=== PATIENT | female | born 1960 | race Asian ===

== ENCOUNTER → 2020-01-01 14:49 | Outpatient (BNVA) | payer OTHER, SELFPAY | PROVIDERS: Visit Provider Nurse Practitioner Family | DX: E03.9 Hypothyroidism, unspecified (principal); Z83.3 Family history of diabetes mellitus; Z12.31 Encounter for screening mammogram for malignant neoplasm of breast; R01.1 Cardiac murmur, unspecified; Z82.49 Family history of ischemic heart disease and other diseases of the circulatory system; Z76.89 Persons encountering health services in other specified circumstances; M25.611 Stiffness of right shoulder, not elsewhere classified; M25.511 Pain in right shoulder | CPT/HCPCS: 73030; 83036; 84439; 84443 ==

== ENCOUNTER → 2020-01-22 07:47 | Outpatient (BNVA) | payer OTHER, SELFPAY | PROVIDERS: Visit Provider Nurse Practitioner Family | DX: Z12.4 Encounter for screening for malignant neoplasm of cervix (principal) | CPT/HCPCS: 88175 ==

== ENCOUNTER 2020-01-31 06:00 | Outpatient (RCR) | payer OTHER, SELFPAY | END 2020-02-28 23:59 | disposition home or self-care (01) | LOC: GPT 06:00 | PROVIDERS: PCP Nurse Practitioner Family; Referring Provider Nurse Practitioner Family; Visit Provider Nurse Practitioner Family | DX: M25.511 Pain in right shoulder (principal); M25.611 Stiffness of right shoulder, not elsewhere classified | CPT/HCPCS: 97032; 97110; 97140; 97161; 97530 ==

== ENCOUNTER 2020-02-01 09:15 | Outpatient (CLI) | payer OTHER, SELFPAY ==
--- NOTE | 2020-02-01 09:30 | CT_ITS ---
WS: [id number] CT CHEST TECHNIQUE: Contrast enhanced CT of the chest with coronal and sagittal reformatted images. CLINICAL INFORMATION: abnormal x ray with chest nodule COMPARISON: Radiograph October 01, 2019 DLP: 616.[address] scans at [facility] use at least one of these dose optimization techniques: automat ed exposure control; mA and/or kV adjustment per patient size (includes targeted exams where dose is matched to clinical indication); or iterative reconstruction. FINDINGS: 5 mm calcified granuloma right upper lobe. Previously described possible calcified granuloma in the r ight upper lobe overlying the scapula is not seen on this examination and may have been subcutaneous or bony in location. No corresponding lesions seen today. No other suspicious pulmonary opacities. Normal caliber thoracic aorta. Proximal main pulmonary arter ies are normal. No mediastinal or hilar lymphadenopathy. Normal visualized thoracic spine. CT/CT chest w con* [id number] IMPRESSION: 1. 5 mm calcified granuloma right upper lobe. 2. No other suspicious pulmonary opacities. 3. 11 mm suspected pulmonary nodule overlying the scapula on prior radiograph is not seen on today's study. 4. No mediastinal or hilar lymphadenopathy.
[2020-02-01 09:56] LABS: Blood Urea Nitrogen 13 mg/dL (8-23); Glomerular Filtration Rate 72.9 mL/min (90-130)
[2020-02-01] MEDS: iohexol 300 mg/mL 100 mL Btl IV (10:03)
== END 2020-02-01 09:16 | disposition home or self-care (01) ==
LOC: RADWPI 09:20
PROVIDERS: PCP Nurse Practitioner Family; Visit Provider Nurse Practitioner Family
DX: J84.10 Pulmonary fibrosis, unspecified (principal); R93.89 Abnormal findings on diagnostic imaging of other specified body structures
CPT/HCPCS: 71260; 82565; 84520; Q9967

== ENCOUNTER 2020-02-15 11:03 | Outpatient (CLI) | payer OTHER, SELFPAY ==
--- NOTE | 2020-02-15 11:30 | MM_ITS ---
WS: [id number] Bilateral screening digital mammogram, 03/01/2020 Clinical Data: yearly screening Comparison: None. Findings: The breast parenchymal pattern shows heterogeneous density No spiculated masses or clustered calcific ations are seen. There are no secondary signs of carcinoma. MM/[id number] Impression: 1. Negative bilateral mammogram with no prior exam for review. 2. Recommend annual screening mammograms. BIRADS: 1-Negative FOLLOW UP: 1 Year Follow-up The CAD photo checker and assembler was used.
== END 2020-02-15 11:04 | disposition home or self-care (01) ==
LOC: RADSHAW 11:07
PROVIDERS: PCP Nurse Practitioner Family; Visit Provider Nurse Practitioner Family
DX: Z12.31 Encounter for screening mammogram for malignant neoplasm of breast (principal)
CPT/HCPCS: 77067

== ENCOUNTER 2020-02-29 06:00 | Outpatient (RCR) | payer OTHER, SELFPAY | END 2020-03-30 23:59 | disposition home or self-care (01) | LOC: GPT 06:00 | PROVIDERS: PCP Nurse Practitioner Family; Referring Provider Nurse Practitioner Family; Visit Provider Nurse Practitioner Family | DX: M25.511 Pain in right shoulder (principal); M25.611 Stiffness of right shoulder, not elsewhere classified | CPT/HCPCS: 97110; 97112; 97140; 97164; 97530; G0283 ==

== ENCOUNTER 2020-03-01 13:54 | Outpatient (CLI) | payer OTHER, SELFPAY ==
--- NOTE | 2020-03-01 14:15 | USCV_ITS ---
Irma Samuels Age: 59 Gender: F : 1960 Exam Date: 03/01/2020 14:35 Ordering Phys: Xochitl Quiroz MD ([email or web address]) Technologist: Deanna Dooley [place] [facility] [place]: heart murmur BP: / HR: 108 Rhythm: Sinus Technical Quality: Good MEASUREMENTS (Male / Female) Normal Values 2D ECHO LV Diastolic Diameter PLAX 3.9 cm 4.2 - 5.9 / 3.9 - 5.3 cm LV Systolic Diameter PLAX 2.5 cm IVS Diastolic Thickness 0.6 cm 0.6 - 1.0 / 0.6 - 0.9 cm IVS Systolic Thickness 1.1 cm LVPW Diastolic Thickness 0.6 cm 0.6 - 1.0 / 0.6 - 0.9 cm LVPW Systolic Thickness 1.5 cm LVOT Diameter 2.0 cm LV Ejection Fraction 2D Teich 68.4 % LV Ejection Fraction MOD 2C 69.4 % LV Ejection Fraction 2C AL 70.6 % LA Diameter 2.2 cm LA Width 2.1 cm LA Height 3.3 cm RA Width 2.6 cm RA Height 4.6 cm M-MODE LV Diastolic Diameter MM 4.1 cm 4.2 - 5.9 / 3.9 - 5.3 cm LV Systolic Diameter MM 2.4 cm LV Ejection Fraction MM Teich 72.3 % IVS Diastolic Thickness MM 0.5 cm 0.6 - 1.0 / 0.6 - 0.9 cm IVS Systolic Thickness MM 1.1 cm LVPW Diastolic Thickness MM 0.7 cm 0.6 - 1.0 / 0.6 - 0.9 cm LVPW Systolic Thickness MM 1.3 cm Aortic Annulus Diameter 2.9 cm LA Ao Ratio MM 0.9 MV E Point Septal Separation 0.3 cm DOPPLER AV Peak Velocity 145.0 cm/s LVOT Peak Velocity 100.0 cm/s AV Area Cont Eq vti 2.4 cm squared AV Area Cont Eq pk 2.2 cm squared MV Peak Velocity 114.0 cm/s MV Area PHT 3.3 cm squared Mitral E to A Ratio 1.0 MV E' Velocity 53.5 cm/s Mitral E to MV E' Ratio 8.3 Mitral E to LV E' Lateral Ratio 9.4 Mitral E to LV E' Septal Ratio 7.5 TR Peak Velocity 194.0 cm/s TR Peak Gradient 15.1 mmHg Right Atrial Pressure 3.0 mmHg Pulmonary Artery Systolic Pressu 18.1 mmHg PV Peak Velocity 99.3 cm/s RV Acceleration Time 0.1 s FINDINGS Left Ventricle Normal left ventricular size and systolic function, EF 70 %. No regional wall motion abnormalities. Right Ventricle Normal right ventricular size and systolic function. Right Atrium Normal right atrial size. Left Atrium Normal left atrial size. Mitral Valve Thickened mitral valve. Aortic Valve No gross abnormalities Tricuspid Valve Mild tricuspid valve regurgitation. Pulmonic Valve No gross abnormalities noted Pericardium No pericardial effusion. Aorta Normal aortic annulus size. CONCLUSIONS Normal left ventricular size and systolic function, EF 70 %. No regional wall motion abnormalities. Thickened mitral valve. Mild tricuspid valve regurgitation. There are no intracardiac masses. There is no pericardial effusion. Thickened mitral valve. No previous study is available for comparison. Dr Xochitl Quiroz MD FACC (Electronically Signed) Final Date: 01 March 2020 17:01 S
== END 2020-03-01 13:55 | disposition home or self-care (01) ==
LOC: RAD 13:56
PROVIDERS: PCP Nurse Practitioner Family; Visit Provider Internal Medicine Cardiovascular Disease
DX: R01.1 Cardiac murmur, unspecified (principal); I08.1 Rheumatic disorders of both mitral and tricuspid valves
CPT/HCPCS: 93306

== ENCOUNTER 2020-03-31 06:00 | Outpatient (RCR) | payer OTHER, SELFPAY | END 2020-04-29 23:59 | disposition home or self-care (01) | LOC: GPT 06:00 | PROVIDERS: PCP Nurse Practitioner Family; Visit Provider Nurse Practitioner Family | DX: M25.511 Pain in right shoulder (principal); M25.611 Stiffness of right shoulder, not elsewhere classified | CPT/HCPCS: 97110; 97112; 97140; 97164; 97530 ==

== ENCOUNTER → 2020-04-09 09:00 | Outpatient (BNVA) | payer OTHER, SELFPAY | PROVIDERS: PCP Nurse Practitioner Family; Visit Provider Nurse Practitioner Family | DX: R22.2 Localized swelling, mass and lump, trunk (principal); E34.9 Endocrine disorder, unspecified; N95.1 Menopausal and female climacteric states; R53.83 Other fatigue | CPT/HCPCS: 82565; 84520 ==

== ENCOUNTER → 2020-04-11 14:45 | Outpatient (BNVA) | payer OTHER, SELFPAY | PROVIDERS: PCP Nurse Practitioner Family; Visit Provider Dermatology | DX: D48.9 Neoplasm of uncertain behavior, unspecified (principal) | CPT/HCPCS: 88304 ==

== ENCOUNTER → 2020-04-17 12:00 | Outpatient (BNVA) | payer OTHER, SELFPAY | PROVIDERS: PCP Nurse Practitioner Family; Visit Provider Nurse Practitioner Family | DX: E34.9 Endocrine disorder, unspecified (principal) | CPT/HCPCS: 82670; 83001; 84403; 84439; 84443; 84481 ==

== ENCOUNTER 2020-04-30 06:00 | Outpatient (RCR) | payer OTHER, SELFPAY | END 2020-05-30 23:59 | disposition home or self-care (01) | LOC: GPT 06:00 | PROVIDERS: PCP Nurse Practitioner Family; Visit Provider Nurse Practitioner Family | DX: M25.511 Pain in right shoulder (principal); M25.611 Stiffness of right shoulder, not elsewhere classified | CPT/HCPCS: 97110; 97140; 97530 ==

== ENCOUNTER → 2020-12-26 07:48 | Outpatient (BNVA) | payer OTHER, SELFPAY | PROVIDERS: PCP Nurse Practitioner Family; Visit Provider Nurse Practitioner Family | DX: E03.9 Hypothyroidism, unspecified (principal) | CPT/HCPCS: 80053; 80061; 84439; 84443; 85025 ==

== ENCOUNTER 2021-02-17 11:40 | Outpatient (CLI) | payer OTHER, SELFPAY ==
--- NOTE | 2021-02-17 12:00 | MM_ITS ---
WS: [id number] BILATERAL DIGITAL SCREENING MAMMOGRAPHY WITH CAD CLINICAL INFORMATION: Z12.31 - Encounter for screening mammogram for malignant ... HISTORY: Screening mammogram. No current complaints. COMPARISON: February 15, 2020 TECHNIQUE: Bilateral CC and MLO views. FINDINGS: The breasts are composed of heterogeneous fibroglandular density tissue, which can limit the detectio n of small underlying mass lesions. No suspicious mass, asymmetry, calcifications, or architectural d istortion. No evidence of malignancy. MM/[id number] IMPRESSION: BI-RADS: 1-Negative FOLLOW UP: 1 Year Follow-up Recommend return to annual screening mammography.
== END 2021-02-17 11:41 | disposition home or self-care (01) ==
LOC: RADSHAW 11:46
PROVIDERS: PCP Nurse Practitioner Family; Visit Provider Nurse Practitioner Family
DX: Z12.31 Encounter for screening mammogram for malignant neoplasm of breast (principal)
CPT/HCPCS: 77067

== ENCOUNTER → 2021-02-18 13:42 | Outpatient (BNVA) | payer OTHER, SELFPAY | PROVIDERS: PCP Nurse Practitioner Family; Referring Provider Nurse Practitioner Family; Visit Provider Podiatrist Foot & Ankle Surgery | DX: M21.612 Bunion of left foot (principal); M21.611 Bunion of right foot; M79.671 Pain in right foot | CPT/HCPCS: 73630 ==

== ENCOUNTER → 2021-03-04 10:34 | Outpatient (BNVA) | payer OTHER, SELFPAY | PROVIDERS: PCP Nurse Practitioner Family; Visit Provider Internal Medicine | DX: Z01.812 Encounter for preprocedural laboratory examination (principal); Z86.010 Personal history of colon polyps; Z20.822 Contact with and (suspected) exposure to COVID-19 | CPT/HCPCS: 87635 ==

== ENCOUNTER → 2021-03-25 09:36 | Outpatient (BNVA) | payer OTHER, SELFPAY | PROVIDERS: PCP Nurse Practitioner Family; Visit Provider Internal Medicine | DX: Z20.822 Contact with and (suspected) exposure to COVID-19 (principal); Z12.11 Encounter for screening for malignant neoplasm of colon | CPT/HCPCS: 87635 ==

== ENCOUNTER 2021-03-31 06:21 | Day surgery (SDC) | payer OTHER, SELFPAY ==
[2021-03-27 14:04] VITALS: BMI 23.6
[2021-03-31 06:43] VITALS: BP 141/64; PULSE 90; RESP 18; TEMP 36.1; O2SAT 99
[2021-03-31] MEDS: sodium chloride 0.9% 1,000 ML 30 ML IV (06:50)
--- NOTE | 2021-03-31 06:52 | ANES.PREANE2 ---
Pre-Anesthetic Assessment Pre-Anesthetic Assessment: Height/Weight: Height 1.6 m Weight 60.328 kg Temp Pulse Resp BP Pulse Ox 97 F L 90 18 141/64 99 03/31/21 06:43 03/31/21 06:43 03/31/21 06:43 03/31/21 06:43 03/31/21 06:43 Preop Diagnosis: Screen Proposed Procedure: Operation Date: 03/31/21 07:30 Proposed Procedures p Colonoscopy G0105 Z86.010(Not Applicable) - Jose Fernández MD Was Beta Farrah taken within 24 hours: N/A Was Clonidine taken within 24 hours: N/A Last intake: Intake Last Liquid Date 03/30/21 Last Liquid Time 22:30 Last Solid Date 03/29/21 Last Solid Time 18:00 Social: Social History: No alcohol and No tobacco Exam: Pre-Anes Outpt Exam: alert and oriented x 3 Airway: Submandibular: WNL Cervical ROM: WNL MP: 2 Dentition: Full History/ROS: No significant history except as noted Pulmonary: Pulmonary: None reported CV/HEM: CV/HEM: HTN and Murmur (grade I murmur since - no complications) : : None reported Hepatic: Hepatic: None reported GI: GI: None reported Metabolic: Metabolic: Thyroid Musc/skel: Musc/skel: None reported Neuropsych: Neuropsych: None reported Anesthetic Plan: ASA status: 2 Anesthesia: Anesthesia Evaluation and MAC Risk of > 500 ml blood loss (7ml/kg in children): No Meds/Allergies Current Medications: Current Medications Generic Name Dose Route Start Last Admin Trade Name Freq PRN Reason Stop Dose Admin Sodium Chloride 1,000 mls @ 30 ml s/hr 03/31/21 06:30 03/31/21 06:50 Sodium Chloride 0.9% IV 04/01/21 06:29 30 mls/hr .Q24H ELIAS Administration PFSH Anesthesia PFSH: Medical History History of cervical dysplasia Palpitations EKG from 02/07/2020 revealed sinus rhythm with a normal ST-T's. Normal [place] and QRS duration. Tricuspid regurgitation Surgical History History of 3 sections Family History Other CAD (coronary artery disease) Cancer Diabetes Hyperlipidemia Hypertension Psychiatric illness Stroke Denies family history of Chronic kidney disease (CKD) Anesthesia complication Bleeding disorder Family history of premature coronary artery disease Lung disease Social History Alcohol intake: never Data Anesthesia Cardiac Studies: No Data to Display
--- NOTE | 2021-03-31 07:28 | W.PM.OPSFHP ---
Same Day Surgery H&P Indication for Procedure/HPI DATE OF PROCEDURE: March 31, 2021 CHIEF COMPLAINT/INDICATIONFOR SURGICAL PROCEDURE: History of colon polyps PREOP DIAGNOSIS: Screen PLANNED PROCEDRUE: Operation Date: 03/31/21 07:30 Proposed Procedures p Colonoscopy G0105 Z86.010(Not Applicable) - Jose Fernández MD Medications/Allergies* Home Medications Medication Instructions Recorded Confirmed Type pimecrolimus 1 % topical cream 1 applic TOPICAL BID PRN 01/01/20 03/28/21 History doxycycline hyclate 100 mg capsule 100 mg PO DAILY PRN 02/07/20 03/28/21 History nitrofurantoin 100 mg PO DAILY PRN cap 02/07/20 03/28/21 History monohydrate/macrocrystals 100 mg capsule Allergies/Adverse Reactions Allergy/AdvReac Type Severity Reaction Status Date / Time Penicillins Allergy Unknown Verified 02/18/21 13:53 Current Medications: Generic Name Dose Route Start Last Admin Trade Name Freq PRN Reason Stop Dose Admin Sodium Chloride 1,000 mls @ 30 mls/hr 03/31/21 06:30 03/31/21 06:50 Sodium Chloride 0.9% IV 04/01/21 06:29 30 mls/hr .Q24H ELIAS Administration Pertinent History/Comorbid Conditions* Medical History (Updated 01/21/21 @ 14:52 by Jose Fernández MD) History of cervical dysplasia Palpitations EKG from 02/07/2020 revealed sinus rhythm with a normal ST-T's. Normal [place] and QRS duration. Tricuspid regurgitation Surgical History (Updated 01/01/20 @ 14:12 by Christiane Kyle NP) History of 3 sections Family History (Updated 02/07/20 @ 11:00 by Orly Davis RN) Diabetes CAD (coronary artery disease) Hyperlipidemia Psychiatric illness Cancer Hypertension Stroke Denies family history of Chronic kidney disease (CKD) Anesthesia complication Bleeding disorder Family history of premature coronary artery disease Lung disease Social History Alcohol intake: never Pertinent Exam Findings alert, oriented x 3, clear to auscultation bilaterally, regular rate & rhythm, operative site marked and procedure specific exam findings Recommendations Surgery/Procedure today Coding Level of Care Code Acute Rfid Systems Architect for Lucrecia Combs
[2021-03-31 07:51] VITALS: BP 109/58; PULSE 78; RESP 16; TEMP 36.1; O2SAT 93
[2021-03-31 08:10] VITALS: BP 137/66; PULSE 72; RESP 16; O2SAT 99
--- NOTE | 2021-03-31 18:51 | ANE.PACU2 ---
Inpatient post-anesthesia follow up: Airway intact: Yes Vital signs: Temperature 97 F Pulse Rate 72 Respiratory Rate 16 Blood Pressure 137/66 Pulse Oximetry 99 Oxygen Delivery Me thod Room Air Oxygen Flow Rate Fraction of Inspir ed Oxygen Hydration adequate: Yes Nausea and vomiting: No Pain level: 1 Mental status: Baseline
== END 2021-03-31 08:28 | disposition home or self-care (01) ==
PROVIDERS: PCP Nurse Practitioner Family; Visit Provider Internal Medicine
PROC: 0DJD8ZZ Inspection of Lower Intestinal Tract, Via Natural or Artificial Opening Endoscopic (ICD-10-PCS; CPT 45378; principal; 2021-03-31 07:30)
DX: Z12.11 Encounter for screening for malignant neoplasm of colon (principal); Z86.010 Personal history of colon polyps; Z87.891 Personal history of nicotine dependence; Z88.0 Allergy status to penicillin
CPT/HCPCS: 45378; 96360; J2704; J7030

== ENCOUNTER → 2021-05-17 10:11 | Outpatient (BNVA) | payer OTHER, SELFPAY | PROVIDERS: PCP Nurse Practitioner Family; Visit Provider Nurse Practitioner Family | DX: Z20.822 Contact with and (suspected) exposure to COVID-19 (principal) | CPT/HCPCS: 87635 ==

== ENCOUNTER 2021-12-22 10:20 | Day surgery (SDC) | payer OTHER, SELFPAY ==
[2021-12-22] VITALS (14 sets, daily range): BP systolic 108–136; BP diastolic 37–64; PULSE 57–96; RESP 12–18; TEMP 35.9–36.9; O2SAT 95–100; BMI 24.6
--- NOTE | 2021-12-22 13:00 | ED_ITS ---
HPI - General Adult General: Chief complaint: Abdominal Pain Stated complaint: abd pain Time Seen by Provider: 12/22/21 12:55 History of Present Illness: Patient is a 61-year-old female with a history of multiple C-sections presenting to the emergency room with complaints of right lower quadrant pain since Wednesday. Patient was at home sitting down when this all happened. Since then, patient has had seen worsening right lower quadrant Rodney pain. Patient reports consistent cramping pain is not worse p.o. intake. Patient denies any nausea/vomiting, diarrhea, melena hematochezia. Patient does have prior history of UTI but denies that this feels like a UTI. Patient denies any hematuria, melena hematochezia. Patient denies any cough, runny nose, sore throat, lightheadedness, chest pain, shortness breath palpitation, or diarrhea. Onset:2 days ago Duration:2 days Location:home Severity:moderate Associated symptoms: Deny chest pain, dyspnea, nausea, rash, palpitations or vomiting Review of Systems Const: Denies: fever(s) or chills Eyes: Denies: change in vision ENMT: Denies: mouth pain Card: Denies: chest pain or palpitations Resp: Denies: dyspnea or non-productive cough GI: Reports: abdominal pain (+RLQ abd pain); Denies: nausea, vomiting or diarrhea : Denies: dysuria Musc: Denies: extremity pain Skin/Breast: Denies: rash or new lesions Neuro: Denies: weakness in extremities Psych: Reports: other (Normal mood) Giorgi/Lymph: Denies: easy bruising PFSH ED PFSH: Medical History History of cervical dysplasia Palpitations EKG from 02/07/2020 revealed sinus rhythm with a normal ST-T's. Normal [place] and QRS duration. Tricuspid regurgitation Surgical History History of 3 sections Family History Other CAD (coronary artery disease) Cancer Diabetes Hyperlipidemia Hypertension Psychiatric illness Stroke Denies family history of Chronic kidney disease (CKD) Anesthesia complication Bleeding disorder Family history of premature coronary artery disease Lung disease Social History Smoking and tobacco status: former smoker Alcohol intake: never Physical Exam Const: COMMON NORMALS: alert HENMT: COMMON NORMALS: atraumatic HEAD & SCALP: atraumatic MOUTH: moist mucous membranes not abnormal Eye: COMMON NORMALS: EOMs intact bilaterally and conjunctivae normal CONJUNCTIVA: Yes conjunctivae normal Neck/C-Spine: COMMON NORMALS: full ROM and supple Resp: COMMON NORMALS: normal respiratory effort and clear to auscultation bilaterally AUSCULTATION: clear to auscultation bilaterally Cardio: COMMON NORMALS: regular rate RATE: regular rate GI: COMMON NORMALS: Soft to palpation PALPATION: Yes Soft to palpation OTHER: +RLQ abd focal TTP. NO guarding rebound, guarding, rigidity. No CVA tenderness to percussion. Neg Reynoso/Neg McBurney's point tenderness, no suprabupic tenderness to palpation. Extremity: COMMON NORMALS: full ROM Neuro: SENSORIUM/ORIENTATION: Yes alert MOTOR EXAM: No Abnormal motor strength present and Other motor observations present (no focal motor deficits) Psych: COMMON NORMALS: speech normal SPEECH: Yes normal speech MOOD & AFFECT: Yes euthymic mood Course Vital Signs: Vital signs: Vital Signs Temperature 98.5 F 12/22/21 10:33 Pulse Rate 61 12/22/21 15:38 Respiratory Rate 15 12/22/21 15:38 Blood Pressure 115/45 12/22/21 15:38 Pulse Oximetry 99 12/22/21 15:38 [facility] - General Adult Medical Decision Making Patient is a 61-year-old female with a history of multiple C-sections presenting to the emergency room with complaints of right lower quadrant pain since Wednesday. Patient has mild tenderness palpation right lower quadrant. Patient has no guarding or rebound tenderness. Hemodynamically stable. Lab work-up showed white count 7.7. CT on pelvis showed acute appendicitis with multiple fibroid lesion. Case was discussed with Dr. Castellanos who recommended abx and surgical management. S/p cefazolin. Incidental findings of fibroids discussed extensively with patient. Patient received a copy of the CT report with the documented findings. Patient is instructed to follow up urgently with specialists in 3 to 6 months for reassessment this could be cancer given her age. I have given patient follow up with our case fitter to be seen by our outpatient [facility] followup uterine mass. Patient aware of a call from our case fitter to schedule for appointment(s) and verbalizes understanding of the importance of following up. Disposition: OR Lab Data : 12/22/21 13:30 12/22/21 13:30 Radiology Impressions Abdomen/Pelvis CT 12/22/21 12:59 IMPRESSION: 1. Acute appendicitis. 2. Multiple uterine masses, consistent with fibroids. ADDENDUM: 12/22/21 [id number] THIS REPORT CONTAINS FINDINGS THAT MAY BE CRITICAL TO PATIENT CARE. The findings were verbally communicated via telephone conference with FROILAN DODD at 5:02 PM CDT on 12/22/2021. The findings were acknowledged and understood. Laboratory Results WBC 7.7 10^3/uL (4.0-10.0) 12/22/21 13:30 RBC 4.60 10^6/uL (4.1-5.3) 12/22/21 13:30 Hgb 13.8 g/dL (11.5-15.3) 12/22/21 13:30 Hct 41.9 % (37.0-47.0) 12/22/21 13:30 MCV 91.1 fl (81-99) 12/22/21 13:30 MCH 30.0 pg (28.0-34.0) 12/22/21 13:30 MCHC 32.9 g/dL (30.0-36.0) 12/22/21 13:30 RDW 12.6 % (12.1-15.1) 12/22/21 13:30 Plt Count 263 10^3/cmm (130-400) 12/22/21 13:30 MPV 8.8 fL (7.4-10.4) 12/22/21 13:30 Neut % (Auto) 62.0 % 12/22/21 13:30 Lymph % (Auto) 29.5 % 12/22/21 13:30 Bee % (Auto) 5.7 % 12/22/21 13:30 Eos % (Auto) 1.6 % 12/22/21 13:30 Baso % (Auto) 0.8 % 12/22/21 13:30 Neut # (Auto) 4.78 10^3/uL (1.8-7.7) 12/22/21 13:30 Lymph # (Auto) 2.3 10^3/uL (0.8-4.8) 12/22/21 13:30 Bee # (Auto) 0.4 10^3/uL (0.2-0.9) 12/22/21 13:30 Eos # (Auto) 0.1 10^3/uL (0.0-0.8) 12/22/21 13:30 Baso # (Auto) 0.1 10^3/uL (0.0-0.1) 12/22/21 13:30 Nucleated RBC % (auto) 0 % 12/22/21 13:30 Nucleated RBCs # 0.0 /100WBC 12/22/21 13:30 Sodium 138 mmol/L (136-145) 12/22/21 13:30 Potassium 3.9 mmol/L (3.5-5.1) 12/22/21 13:30 Chloride 100 mmol/L (98-107) 12/22/21 13:30 Carbon Dioxide 29 mmol/L (22-29) 12/22/21 13:30 Anion Gap 12.9 (5-19) 12/22/21 13:30 BUN 9 mg/dL (8-23) 12/22/21 13:30 Creatinine 0.6 mg/dL (0.5-0.9) 12/22/21 13:30 GFR Calculation 101.0 mL/min (90-130) 12/22/21 13:30 Glucose 96 mg/dL (65-115) 12/22/21 13:30 Calculated Osmolality 285 mOsm/kg (285-295) 12/22/21 13:30 Calcium 9.6 mg/dL (8.5-10.5) 12/22/21 13:30 Total Bilirubin 0.3 mg/dL (0.15-1.2) 12/22/21 13:30 AST 27 U/L (0-32) 12/22/21 13:30 ALT 26 U/L (0-33) 12/22/21 13:30 Alkaline Phosphatase 73 IU/L (35-105) 12/22/21 13:30 Total Protein 7.9 g/dL (6.6-8.7) 12/22/21 13:30 Albumin 5.0 g/dL (3.5-5.2) 12/22/21 13:30 Globulin 2.9 g/dL (1.3-4.6) 12/22/21 13:30 Lipase 22 U/L (13-60) 12/22/21 13:30 Urine Color Straw (Yellow) 12/22/21 13:20 Urine Appearance Clear (CLEAR) 12/22/21 13:20 Urine pH 6 (5-7) 12/22/21 13:20 Ur Specific [place] 1.010 (1.005-1.030) 12/22/21 13:20 Urine Protein Neg (Negative) 12/22/21 13:20 Urine Glucose (UA) Norm (Normal) 12/22/21 13:20 Urine Ketones Negative (Negative) 12/22/21 13:20 Urine Blood Neg (Negative) 12/22/21 13:20 Urine Nitrate Negative (Negative) 12/22/21 13:20 Urine Bilirubin Neg (Negative) 12/22/21 13:20 Urine Urobilinogen Norm mg/dL (Negative) 12/22/21 13:20 Ur Leukocyte Esterase Negative (Negative) 12/22/21 13:20 Imaging Data Other Imaging: Radiologist's impression: [address] [address] [address] Scan Report Signed with Addenda Patient: Irma Samuels Unit #: [id number] : 1960 Age/Sex: 61 / F ADM Date: 12/22/21 Loc: ER Room/Bed: Attending Dr: Ordering Provider/Ordering MD: Froilan Dodd MD Date of Service: 12/22/21 Procedure(s): CT abdomen pelvis w con* [id number] Accession Number(s): [id number] Report Number: [id number]/CT abdomen pelvis w con* [id number] THIS REPORT CONTAINS FINDINGS THAT MAY BE CRITICAL TO PATIENT CARE. The findings were verbally communicated via telephone conference with FROILAN DODD at 5:02 PM CDT on 12/22/2021. The findings were acknowledged and understood. ? Addendum Dictated By: ?Valeriy Castro Addendum Signed By: ?Valeriy Castro Signed Date/Time: 12/22/211702 Addendum Cosigned By: ? PROCEDURE INFORMATION: Exam: CT Abdomen And Pelvis With Contrast Exam date and time: 12/22/2021 3:45 PM Age: 61 years old Clinical indication: Abdominal pain; Localized; Right lower quadrant (rlq); Prior surgery; Surgery type: ; Additional info: Abd pain TECHNIQUE: Imaging protocol: Computed tomography of the abdomen and pelvis with contrast. Radiation optimization: All CT scans at this facility use at least one of these dose optimization techniques: automated exposure control; mA and/or kV adjustment per patient size (includes targeted exams where dose is matched to clinical indication); or iterative reconstruction. Contrast material: OMNI 350; Contrast volume: 95 ml; Contrast route: INTRAVENOUS (IV);? COMPARISON: CT chest w con* [id number] 02/01/2020 10:00 AM RADIATION DOSE METRICS: Total DLP (mGy-cm): 1000.49 FINDINGS: Liver: Normal. No mass. Gallbladder and bile ducts: Normal. No calcified stones. No ductal dilation. Pancreas: Normal. No ductal dilation. Spleen: Calcified granuloma in the spleen. Otherwise unremarkable. Adrenal glands: Normal. No mass. Kidneys and ureters: Normal. No hydronephrosis. Stomach and bowel: Unremarkable. No obstruction. No mucosal thickening. Appendix: The appendix is dilated and fluid-filled measuring 11 mm. Mild appendiceal wall enhancement. Minimal periappendiceal fat stranding. Intraperitoneal space: Unremarkable. No free air. No significant fluid collection. Vasculature: Unremarkable. No abdominal aortic aneurysm. Lymph nodes: Unremarkable. No enlarged lymph nodes. Urinary bladder: Unremarkable as visualized. Reproductive: Multiple inhomogenous uterine masses, the largest 6.5 cm. The ovaries are unremarkable. Bones/joints: Unremarkable. No acute fracture. Soft tissues: Unremarkable. CT/CT abdomen pelvis w con* [id number] IMPRESSION: 1. Acute appendicitis. 2. Multiple uterine masses, consistent with fibroids. ? Dictated By: Valeriy Castro Signed By: Valeriy Castro Signed Date/Time: 12/22/211658 DD/ 066 Discharge Plan Discharge Patient Disposition: Admitted As Inpatient Clinical Impression: Abdominal pain Condition: Stable Coding Level of Care Code ED Environmental Systems Coordinator for g Fwd Exam Comprehensive
[2021-12-22] MEDS: morphine 4 mg/mL SDV 1 mL 2 MG IVP (13:35)
[2021-12-22] MEDS: sodium chloride 0.9% 1,000 ML 999 ML IV (13:36)
[2021-12-22 13:37] LABS: Basophils # 0.1 10^3/uL (0.0-0.1); Basophils % 0.8 %; Eosinophils # 0.1 10^3/uL (0.0-0.8); Eosinophils % 1.6 %; Hematocrit 41.9 % (37.0-47.0); Hemoglobin 13.8 g/dL (11.5-15.3); Lymphocytes # 2.3 10^3/uL (0.8-4.8); Lymphocytes % 29.5 %; Mean Corpuscular HGB Conc 32.9 g/dL (30.0-36.0); Mean Corpuscular Volume 91.1 fl (81-99); Mean Platelet Volume 8.8 fL (7.4-10.4); Monocytes # 0.4 10^3/uL (0.2-0.9); Monocytes % 5.7 %; Neutrophils # 4.78 10^3/uL (1.8-7.7); Nucleated Red Blood Cells % 0 %; Platelet Count 263 10^3/cmm (130-400); Red Cell Distribution Width 12.6 % (12.1-15.1); White Blood Count 7.7 10^3/uL (4.0-10.0)
[2021-12-22 13:46] LABS: Add Urine Microscopic? NO; Charge for UA Resulting for Rev
[2021-12-22 13:57] LABS: Bilirubin Urine Neg (Negative); Blood Urine Neg (Negative); Glucose Urine UA Norm (Normal); Ketones Urine Negative (Negative); Leukocyte Esterase Urine Negative (Negative); Nitrate Urine Negative (Negative); Protein Urine Neg (Negative); Urine Appearance Clear (CLEAR); Urine Color Straw (Yellow); Urobilinogen Urine Norm (Negative); pH Urine 6 (5-7)
[2021-12-22 14:05] LABS: Alanine Aminotransferase 26 U/L (0-33); Alkaline Phosphatase 73 IU/L (35-105); Anion Gap 12.9 (5-19); Aspartate Amino Transferase 27 U/L (0-32); Blood Urea Nitrogen 9 mg/dL (8-23); Calcium 9.6 mg/dL (8.5-10.5); Carbon Dioxide 29 mmol/L (22-29); Chloride 100 mmol/L (98-107); Globulin 2.9 g/dL (1.3-4.6); Glucose 96 mg/dL (65-115); Lipase 22 U/L (13-60); Osmolality Calculated 285 mOsm/kg (285-295); Potassium 3.9 mmol/L (3.5-5.1); Sodium 138 mmol/L (136-145); Total Bilirubin 0.3 mg/dL (0.15-1.2); Total Protein 7.9 g/dL (6.6-8.7)
[2021-12-22] MEDS: iohexol 300 mg/mL 100 mL Btl IV (15:48)
--- NOTE | 2021-12-22 17:17 | ANES.PREANE2 ---
Pre-Anesthetic Assessment Height/Weight: Height 1.6 m Weight 63.049 kg Temp Pulse Resp BP Pulse Ox 98.5 F 61 15 115/45 99 12/22/21 10:33 12/22/21 15:38 12/22/21 15:38 12/22/21 15:38 12/22/21 15:38 Preop Diagnosis: acute appendicitis Was Beta Farrah taken within 24 hours: N/A Was Clonidine taken within 24 hours: N/A Last intake: 12/22/21 0930 Social No alcohol and No tobacco Exam alert, oriented x 3, clear to auscultation bilaterally and regular rate & rhythm Airway Submandibular: within normal limits Cervical ROM: within normal limits Mallampati: Class I Dentition: full Pulmonary None reported CV/HEM None reported Tricuspid Regurgitation Palpitation METS > 4 None reported Hepatic None reported GI Acute appendicitis Metabolic Thyroid Disease (Hypothyroid ) Musc/skel Decreased ROM right shoulder Neuropsych Depression Anesthetic Plan ASA status: 2 Anesthesia: Anesthesia Evaluation and General Other: We discussed risk and benefits of general anesthesia including PONV, sore throat (sometimes severe), corneal abrasion, positioning and peripheral nerve injuries, life threatening allergic reaction, post operative ICU admission requiring prolonged intubation, aspiration, stroke, heart attack, , and rare incidences of recall. Patient consents to proceed with general anesthesia. Plan GETA, RSI. Risk of > 500 ml blood loss (7ml/kg in children): No Medications/Allergies Home Medications Medication Instructions Recorded Confirmed Last Taken Type doxycycline hyclate 100 mg capsule 100 mg PO DAILY PRN 02/07/20 12/22/21 Unknown History nitrofurantoin 100 mg PO DAILY PRN cap 02/07/20 12/22/21 03/28/21 History monohydrate/macrocrystals 100 mg capsule (Macrobid) progesterone micronized 200 mg 200 mg PO DAILY #90 cap 08/26/20 12/22/21 12/22/21 Rx capsule ketoconazole 2 % shampoo 1 applic TOPICAL .2 x weekly #120 05/13/21 12/22/21 Unknown Rx ml ketoconazole 2 % topical cream 1 applic TOPICAL BID #30 g 05/13/21 12/22/21 Unknown Rx levothyroxine 50 mcg tablet 50 mcg PO DAILY 12/22/21 12/22/21 12/22/21 History (Synthroid) Allergies Allergy/AdvReac Type Severity Reaction Status Date / Time Penicillins Allergy Unknown Verified 12/22/21 13:36 [facility] Anesthesia Medical History History of cervical dysplasia Palpitations EKG from 02/07/2020 revealed sinus rhythm with a normal ST-T's. Normal [place] and QRS duration. Tricuspid regurgitation Surgical History History of 3 sections Family History Other CAD (coronary artery disease) Cancer Diabetes Hyperlipidemia Hypertension Psychiatric illness Stroke Denies family history of Chronic kidney disease (CKD) Anesthesia complication Bleeding disorder Family history of premature coronary artery disease Lung disease Social History Smoking and tobacco status: former smoker Alcohol intake: never Data Anesthesia : 12/22/21 13:30 12/22/21 13:30 Short CBC 12/22/21 Range/Units 13:30 WBC 7.7 (4.0-10.0) 10^3/uL Hgb 13.8 (11.5-15.3) g/dL Hct 41.9 (37.0-47.0) % MCV 91.1 (81-99) fl Plt Count 263 (130-400) 10^3/cmm Neut % (Auto) 62.0 % Neut # (Auto) 4.78 (1.8-7.7) 10^3/uL BMP 12/22/21 13:30 Sodium 138 Potassium 3.9 Chloride 100 Carbon Dioxide 29 BUN 9 Creatinine 0.6 Glucose 96 Calcium 9.6 Liver Function 12/22/21 Range/Units 13:30 Total Bilirubin 0.3 (0.15-1.2) mg/dL AST 27 (0-32) U/L ALT 26 (0-33) U/L Alkaline Phosphatase 73 (35-105) IU/L Albumin 5.0 (3.5-5.2) g/dL Urine 12/22/21 Range/Units 13:20 Urine Color Straw (Yellow) Urine Appearance Clear (CLEAR) Urine pH 6 (5-7) Ur Specific [place] 1.010 (1.005-1.030) Urine Protein Neg (Negative) Urine Glucose (UA) Norm (Normal) Urine Ketones Negative (Negative) Urine Nitrate Negative (Negative) Urine Bilirubin Neg (Negative) Ur Leukocyte Esterase Negative (Negative) Cardiac Studies: Echocardiogram Ultrasound 03/01/20
--- NOTE | 2021-12-22 17:19 | ECG_ITS ---
[facility] Test Date: 2021-12-22 Pat Name: Irma Samuels Department: Room: Gender: Female F[employer] Checker: : 1960 Requested By: Kenneth Rueda Order Number: [id number] Sobia MD: Xochitl Quiroz M.D. Measurements Intervals [place] Rate: 66 P: 28 [place]: 167 QRS: 76 QRSD: 73 T: 53 QT: 393 QTc: 414 Interpretive Statements SINUS RHYTHM No previous ECG available for comparison Electronically Signed On 12-22-2021 21:07:09 CDT by Xochitl Quiroz M.D. [id number]
[2021-12-22] MEDS: ceFAZolin 1,000 MG in sodium chloride 0.9% (plus) 50 ML 100 MG IV (17:36)
[2021-12-22] MEDS: sodium chloride 0.9% 1,000 ML 30 ML IV (18:15)
[2021-12-22] MEDS: metroNIDAZOLE IV 500 MG/100 ML PREMIX 100 MG IV (18:17)
--- NOTE | 2021-12-22 18:17 | PM.HP ---
Providers/Chief Complaint Primary Care Provider: Christiane Kyle NP Chief Complaint: abd pain History of Present Illness Irma Samuels is a 61 year old female who presented to the ER today with 48-hour history of right lower quadrant pain. The pain does not radiate but is worse with physical activity. She denies any nausea, vomiting, constipation, diarrhea, fevers or chills. No smell episodes in the past. She has had prior but no abdominal surgeries. She is up-to-date on her colonoscopy Review of Systems General: Reports: 10 or more systems reviewed and unremarkable except in HPI and below Medications/Allergies Home Medications Medication Instructions Recorded Confirmed Last Taken Type doxycycline hyclate 100 mg capsule 100 mg PO DAILY PRN 02/07/20 12/22/21 Unknown History nitrofurantoin 100 mg PO DAILY PRN cap 02/07/20 12/22/21 03/28/21 History monohydrate/macrocrystals 100 mg capsule (Macrobid) progesterone micronized 200 mg 200 mg PO DAILY #90 cap 08/26/20 12/22/21 12/22/21 Rx capsule ketoconazole 2 % shampoo 1 applic TOPICAL .2 x weekly #120 05/13/21 12/22/21 Unknown Rx ml ketoconazole 2 % topical cream 1 applic TOPICAL BID #30 g 05/13/21 12/22/21 Unknown Rx hydrocodone 5 mg-acetaminophen 325 1 tab PO Q6H PRN #20 tab 12/22/21 Unknown Rx mg tablet levothyroxine 50 mcg tablet 50 mcg PO DAILY 12/22/21 12/22/21 12/22/21 History (Synthroid) Allergies Allergy/AdvReac Type Severity Reaction Status Date / Time Penicillins Allergy Unknown Verified 12/22/21 13:36 PFSH Acute PFSH: Medical History History of cervical dysplasia Palpitations EKG from 02/07/2020 revealed sinus rhythm with a normal ST-T's. Normal [place] and QRS duration. Tricuspid regurgitation Surgical History (Updated 12/22/21 @ 17:48 by Mehrdad Castellanos MD) History of 3 sections Status post colonoscopy Family History Other CAD (coronary artery disease) Cancer Diabetes Hyperlipidemia Hypertension Psychiatric illness Stroke Denies family history of Chronic kidney disease (CKD) Anesthesia complication Bleeding disorder Family history of premature coronary artery disease Lung disease Social History Smoking and tobacco status: former smoker Alcohol intake: never Vitals/I&O/Wt Last Vital Signs Temp 98.5 F 12/22/21 10:33 Pulse 61 12/22/21 15:38 Resp 15 12/22/21 15:38 BP 115/45 12/22/21 15:38 Pulse Ox 99 12/22/21 15:38 12/22/21 12/22/21 12/22/21 06:59 14:59 22:59 Intake Total 1000 / 1000 Balance 1000 / 1000 Weight last 48 hrs Weight 139 lb Physical Exam Narrative: HEENT: Normocephalic Eye: Sclera /conjunctiva normal Respiratory and chest: Bilateral clear breath sounds on auscultation Cardiovascular: Normal S1 and S2 heart sounds Abdomen: Soft to palpation, tender right lower quadrant Neurological: Oriented to place person and time Skin: Intact, no lesions appreciated on gross exam Data : 12/22/21 13:30 12/22/21 13:30 A&P Assessment and plan (1) Acute appendicitis: 61-year-old female who presents to the ER with 48-hour history of right lower quadrant pain. Patient denies any nausea, vomiting or other GI symptoms. WBC 7K CT abdomen pelvis showed acute appendicitis Plan for laparoscopic possible open appendectomy Procedure, risks, benefits and alternatives have been discussed with the patient who wishes to proceed with surgery. IV Ancef and Flagyl preop SCD Status: Acute Attestations Medical Necessity Statement*: appendicitis Coding Level of Care Code Acute [employer] for [facility] Fwd Diagnoses Acute appendicitis K35.80
--- NOTE | 2021-12-22 18:23 | P.OP_ITS ---
Operative Report Date of procedure: December 22, 2021 Pre-op diagnosis: Acute appendicitis Post-op diagnosis: same Procedure done: Laparoscopic appendectomy Specimens removed/disposition: appendix Surgeon: Mehrdad Castellanos Anesthesia: General Condition: stable Disposition: PACU Procedure: The patient was taken to the Operating Room and intubated under general anesthesia after antibiotic had been administered. Using a 15 blade, a 1-cm infraumbilical incision was made and using open Robert technique, the peritoneal cavity was entered. A 12mm port with balloon was placed and 15 mm of pneu moperitoneum was created and 10-mm 30 degree scope was introduced. Two separate 5mm ports were placed in the left lower quadrant and suprapubic area under direct visualization. The appendix was noted in the right lower quadrant and appeared acutely inflamed.. Using [place] forceps, an opening was made in the mesoappendix near the base of the appendix. An Endo COREEN stapler 45mm long 3.5mm blue load was introduced to divide the appendix at it's base. Using electrocautery, the mesoappendix including the appendicular artery was divided. There was no bleeding noted and the staple line appeared intact. EndoCatch bag was introduced to remove the appendix. All three ports were removed under direct visualization and there was no bleeding noted on the port sites. 10cc of 0.5% Marcaine was infiltrated at the port sites. The fascia at the umbilical port was closed using figure of eight 0-Vicryl sutures and subcutaneous tissue was approximated using 3-0 Vicryl and skin at all 3 port sites were closed using 4-0 Monocryl and Dermabond. The patient was extubated and transferred recovery room stable condition.
--- NOTE | 2021-12-22 19:09 | ANE.PACU2 ---
Inpatient post-anesthesia follow up: Airway intact: Yes Vital signs: Temperature 97.0 F Pulse Rate 78 Respiratory Rate 16 Blood Pressure 130/61 Pulse Oximetry 95 Oxygen Delivery Me thod Room Air Oxygen Flow Rate Fraction of Inspir ed Oxygen Hydration adequate: Yes Nausea and vomiting: No Pain level: 1 Mental status: Baseline
[2021-12-22] MEDS: lidocaine 2% INJ 20 mL INJECTION (19:19)
--- NOTE | 2021-12-23 06:33 | ANE.PACU2 ---
Inpatient post-anesthesia follow up: Airway intact: Yes Vital signs: Temperature 96.7 F Pulse Rate 63 Respiratory Rate 18 Blood Pressure 135/59 Pulse Oximetry 96 Oxygen Delivery Me thod Room Air Oxygen Flow Rate Fraction of Inspir ed Oxygen Hydration adequate: Yes Nausea and vomiting: No Pain level: 3 Mental status: Baseline
== END 2021-12-22 19:41 | disposition home or self-care (01) ==
LOC: ER 13:00 → OR 17:56
PROVIDERS: Physician Assistant; Emergency Provider Emergency Medicine; PCP Nurse Practitioner Family; Visit Provider Surgery
PROC: 0DTJ4ZZ Resection of Appendix, Percutaneous Endoscopic Approach (ICD-10-PCS; CPT 44970; principal; 2021-12-22 18:30)
DX: K35.33 Acute appendicitis with perforation, localized peritonitis, and gangrene, with abscess (principal); Z87.891 Personal history of nicotine dependence
CPT/HCPCS: 44970; 74177; 80053; 81003; 83690; 85025; 88304; 93005; J0330; J0690; J1100; J1200; J2270; J2405; J2704; J2710; J3010; J3490; J7030; Q9967; S0030

== ENCOUNTER → 2022-02-18 08:24 | Outpatient (BNVA) | payer OTHER, SELFPAY | PROVIDERS: PCP Nurse Practitioner Family; Visit Provider Nurse Practitioner Family | DX: E03.9 Hypothyroidism, unspecified (principal) | CPT/HCPCS: 80061; 84443 ==

== ENCOUNTER → 2022-03-11 12:04 | Outpatient (BNVA) | payer OTHER, SELFPAY | PROVIDERS: PCP Nurse Practitioner Family; Visit Provider Nurse Practitioner Obstetrics & Gynecology | DX: N95.1 Menopausal and female climacteric states (principal); R53.83 Other fatigue; Z00.00 Encounter for general adult medical examination without abnormal findings; Z13.9 Encounter for screening, unspecified; E03.9 Hypothyroidism, unspecified | CPT/HCPCS: 80053; 82607; 82652; 83001; 84403; 84439; 84481; 85025; 86376 ==

== ENCOUNTER → 2022-03-12 08:40 | Outpatient (BNVA) | payer OTHER, SELFPAY | PROVIDERS: PCP Nurse Practitioner Family; Visit Provider Nurse Practitioner Obstetrics & Gynecology | DX: N95.1 Menopausal and female climacteric states (principal); R53.83 Other fatigue; Z00.00 Encounter for general adult medical examination without abnormal findings; E03.9 Hypothyroidism, unspecified; Z13.9 Encounter for screening, unspecified | CPT/HCPCS: 82306; 84443 ==

== ENCOUNTER 2022-03-18 14:28 | Outpatient (CLI) | payer OTHER, SELFPAY ==
--- NOTE | 2022-03-18 15:02 | MM_ITS ---
WS: [id number] BILATERAL 3D TOMOSYNTHESIS DIGITAL SCREENING MAMMOGRAPHY WITH CAD CLINICAL INFORMATION: SCREEN HISTORY: Screening mammogram. No current complaints. COMPARISON: February 17, 2021 TECHNIQUE: Bilateral CC and MLO views. FINDINGS: The breasts are composed of heterogeneous fibroglandular density tissue, which can limit the detectio n of small underlying mass lesions. No suspicious mass, asymmetry, calcifications, or architectural d istortion. No evidence of malignancy. Vascular calcification. MM/[place] [id number] IMPRESSION: BI-RADS: 2-Benign FOLLOW UP: 1 Year Follow-up Recommend return to annual screening mammography.
== END 2022-03-18 14:29 | disposition home or self-care (01) ==
LOC: RAD 14:30
PROVIDERS: PCP Nurse Practitioner Family; Visit Provider Nurse Practitioner Family
DX: Z12.31 Encounter for screening mammogram for malignant neoplasm of breast (principal)
CPT/HCPCS: 77063; 77067

== ENCOUNTER 2022-05-05 12:19 | Day surgery (SDC) | payer OTHER, SELFPAY ==
[2022-05-04 10:45] VITALS: BMI 24.6
[2022-05-05] MEDS: sodium chloride 0.9% 1,000 ML 30 ML IV (12:57)
--- NOTE | 2022-05-05 15:06 | W.PM.OPSUD ---
Surgery/Procedure H&P Update DATE OF PROCEDURE: May 05, 2022 DATE H&P PERFORMED: 04/30/22 H&P UPDATE INFORMATION: I have reviewed H&P completed within last 30 days, I have examined patient prior to procedure and No changes to prior documentation PREOP DIAGNOSIS: pmb, uterine fibroid PLANNED PROCEDURE: Operation Date: 05/05/22 14:10 Proposed Procedures p Hysterosocopy, dilation and curettage with Myosure 22206, 73703, 64052,D25.9,N95.0(Not Applicable) - Akua Prince MD
[2022-05-05] MEDS: ceFAZolin 2,000 MG in sodium chloride 0.9% (plus) 50 ML 100 MG IV (15:28)
--- NOTE | 2022-05-05 16:03 | ANES.PREANE2 ---
Pre-Anesthetic Assessment Height/Weight: Height 1.6 m Weight 63.049 kg O2 Del Method 05/05/22 12:45 Preop Diagnosis: pmb, uterine fibroid Operation Date: 05/05/22 14:10 Proposed Procedures p Hysterosocopy, dilation and curettage with Myosure 22968, 89207, 38498,D25.9,N95.0(Not Applicable) - Akua Prince MD Familial anesthetic complications: none Was Beta Farrah taken within 24 hours: N/A Was Clonidine taken within 24 hours: N/A Last intake: Intake Last Liquid Date 05/05/22 Last Liquid Time 09:45 Last Solid Date 05/04/22 Last Solid Time 21:45 Social No alcohol and No tobacco Exam alert, oriented x 3, clear to auscultation bilaterally and regular rate & rhythm Airway Submandibular: within normal limits Cervical ROM: within normal limits Mallampati: Class II Dentition: full CV/HEM Murmur (TR) Metabolic Hyperlipidemia and Thyroid Disease Neuropsych Anxiety and Depression Anesthetic Plan ASA status: 2 Anesthesia: General Medications/Allergies Home Medications Medication Instructions Recorded Confirmed Last Taken Type doxycycline hyclate 100 mg capsule 100 mg PO DAILY PRN skin condition 02/07/20 05/04/22 Unknown History progesterone micronized 200 mg 200 mg PO DAILY #90 caps 08/26/20 05/04/22 05/04/22 Rx capsule ketoconazole 2 % topical cream 1 applic topical BID #30 grams 05/13/21 05/04/22 Unknown Rx nitrofurantoin 100 mg PO DAILY PRN chronic UTI 02/03/22 05/04/22 05/04/22 Rx monohydrate/macrocrystals 100 mg #30 caps capsule (Macrobid) atorvastatin 40 mg tablet 40 mg PO DAILY #90 tabs 03/09/22 05/04/22 05/04/22 Rx levothyroxine 50 mcg tablet 50 mcg PO DAILY #90 tabs 03/25/22 05/04/22 05/05/22 Rx (Synthroid) Allergies Allergy/AdvReac Type Severity Reaction Status Date / Time Penicillins Allergy Unknown Verified 05/04/22 10:43 Current Medications Generic Name Dose Route Start Last Admin Trade Name Freq PRN Reason Stop Dose Admin Sodium Chloride 1,000 mls @ 30 mls/hr 05/05/22 12:45 05/05/22 12:57 Sodium Chloride 0.9% IV 05/06/22 12:44 30 mls/hr .Q24H ELIAS Administration PFSH Anesthesia Medical History History of cervical dysplasia Palpitations EKG from 02/07/2020 revealed sinus rhythm with a normal ST-T's. Normal [place] and QRS duration. Tricuspid regurgitation Surgical History History of 3 sections S/P laparoscopic appendectomy (12/22/21) Status post colonoscopy Family History Family/Other Colon cancer paternal aunt Father Hypercholesteremia Mother Hypercholesteremia Other Diabetes Hypertension Stroke Denies family history of Ovarian cancer Heart disease Breast cancer Uterine cancer Thyroid disease Social History Alcohol intake: never Data Anesthesia Cardiac Studies: Echocardiogram Ultrasound 03/01/20
--- NOTE | 2022-05-05 16:20 | PM.OP ---
Operative Report Date of procedure: May 05, 2022 Pre-op diagnosis: Preop Diagnosis pmb, uterine fibroid Post-op diagnosis: same Post-op findings: one large intercavitary fibroid and one large anterior fibroid Procedure done: hysteroscopy, D&C with myosure Specimens removed/disposition: endometrial curettings to pathology Surgeon: Akua Prince Anesthesia: MAC Estimated blood loss (mL): 2 IV fluids (mL): 200 Complications: none Condition: stable Disposition: PACU Procedure: The patient was taken to the operating room where monitored anesthesia was administered and to be adequate. She was prepped and draped in the normal sterile fashion in the dorsal lithotomy position in [facility]. A weighted speculum was placed into the vagina and the anterior lip of the cervix grasped with a single-tooth tenaculum. The uterus was sounded to 10 cm. The cervix was dilated to 16 Lao. The hysteroscope was advanced into the endometrial cavity. There was a large intracavitary fibroid as well as an extra-large anterior fibroid that appeared to go the entire distance of the myometrium. Visualized. The MyoSure device was activated and the tissue was removed. A biopsy of the extra large anterior fibroid was performed but I did not try to remove it due to the size. Pictures were taken pre and post procedure. All instruments were removed. The patient tolerated the procedure well. Sponge lap and needle counts were correct x3. She was taken to the recovery room in stable condition.
[2022-05-05 16:23] VITALS: BP 117/53; PULSE 89; RESP 16; TEMP 36.8; O2SAT 99
--- NOTE | 2022-05-05 16:26 | PM.DCS ---
Discharge Providers Date of Admission: 05/05/22 Date of Discharge: May 05, 2022 Attending Provider at Admission: Dr. chanel Attending Provider at Discharge: Akua Chanel MD Primary Care Provider: Christiane Kyle NP Reason for Visit Reason for Visit: Leiomyoma of uterus , unspecified Hospital Course Hospital Course The patient was admitted for surgery. She did well postoperatively and was ready for discharge Discharge Data Vitals Last Vital Signs O2 Del Method 05/05/22 12:45 Discharge Plan Discharge Patient Disposition: Home Condition: Stable Prescriptions: Continued doxycycline hyclate 100 mg capsule 100 mg PO DAILY PRN (Reason: skin condition) Rx Instructions: skin disorder ketoconazole 2 % cream 1 applic topical BID Qty: 30 4RF Rx Instructions: Apply 1-2 x daily to face prn for redness and scale nitrofurantoin monohyd/m-cryst [Macrobid] 100 mg capsule 100 mg PO DAILY PRN (Reason: chronic UTI) Qty: 30 0RF Rx Instructions: must administer with a meal/food, if symptomatic take daily for 5 days. progesterone micronized 200 mg capsule 200 mg PO DAILY Qty: 90 2RF atorvastatin 40 mg tablet 40 mg PO DAILY Qty: 90 3RF Synthroid 50 mcg tablet 50 mcg PO DAILY Qty: 90 3RF Discharge Orders: Discharge Order (Routine); Ordered 05/05/22 Ordered By: Akua Chanel Discharge Attestations Time Spent in Discharge Care*: less than 30 min Quality Metrics Clinical Quality Measures [ No reported AMI, CVA or VTE this stay] Coding Level of Care Code Acute Chg FW DC note
[2022-05-05 16:28] VITALS: BP 116/51; PULSE 82; RESP 15; O2SAT 100
[2022-05-05 16:33] VITALS: BP 115/53; PULSE 79; RESP 16; O2SAT 98
[2022-05-05 16:37] VITALS: BP 114/58; PULSE 74; RESP 18; TEMP 36.2; O2SAT 98
[2022-05-05 16:42] VITALS: BP 129/71; PULSE 88; RESP 18; O2SAT 98
--- NOTE | 2022-05-05 16:46 | ANE.PACU2 ---
Inpatient post-anesthesia follow up: Airway intact: Yes Vital signs: Temperature 97.2 F Pulse Rate 74 Respiratory Rate 18 Blood Pressure 114/58 Pulse Oximetry 98 Oxygen Delivery Me thod Room Air Oxygen Flow Rate 6 Fraction of Inspir ed Oxygen Hydration adequate: Yes Nausea and vomiting: No Pain level: 2 Mental status: Baseline
== END 2022-05-05 17:25 | disposition home or self-care (01) ==
PROVIDERS: PCP Nurse Practitioner Family; Visit Provider Obstetrics & Gynecology
PROC: 0UDB8ZZ Extraction of Endometrium, Via Natural or Artificial Opening Endoscopic (ICD-10-PCS; CPT 58558; principal; 2022-05-05 14:00)
DX: D25.9 Leiomyoma of uterus, unspecified (principal); E78.5 Hyperlipidemia, unspecified; F41.9 Anxiety disorder, unspecified; F32.A Depression, unspecified
CPT/HCPCS: 58558; 88305; J0690; J1100; J1200; J2405; J2704; J3010; J7030

== ENCOUNTER → 2023-02-02 09:31 | Outpatient (BNVA) | payer OTHER, SELFPAY | PROVIDERS: PCP Nurse Practitioner Family; Visit Provider Nurse Practitioner Family | DX: E53.8 Deficiency of other specified B group vitamins (principal); E78.5 Hyperlipidemia, unspecified; E55.9 Vitamin D deficiency, unspecified; E03.9 Hypothyroidism, unspecified | CPT/HCPCS: 80053; 80061; 82306; 82607; 84443 ==

== ENCOUNTER 2023-03-30 10:15 | Outpatient (CLI) | payer OTHER, SELFPAY ==
--- NOTE | 2023-03-30 10:33 | MM_ITS ---
WS: [id number] BILATERAL 3D TOMOSYNTHESIS DIGITAL SCREENING MAMMOGRAPHY WITH CAD CLINICAL INFORMATION: SCREENING HISTORY: Screening mammogram. No current complaints. COMPARISON: 2021 TECHNIQUE: Bilateral CC and MLO views. FINDINGS: The breasts are composed of heterogeneous fibroglandular density tissue, which can limit the detectio n of small underlying mass lesions. No suspicious mass, asymmetry, calcifications, or architectural d istortion. No evidence of malignancy. Vascular calcification. IMPRESSION: MM/[place] [id number] BI-RADS: 2-Benign FOLLOW UP: 1 Year Follow-up Recommend return to annual screening mammography.
== END 2023-03-30 10:16 | disposition home or self-care (01) ==
LOC: RAD 10:15
PROVIDERS: PCP Nurse Practitioner Family; Visit Provider Nurse Practitioner Family
DX: Z12.31 Encounter for screening mammogram for malignant neoplasm of breast (principal)
CPT/HCPCS: 77063; 77067

== ENCOUNTER → 2023-07-27 09:15 | Outpatient (BNVA) | payer MEDICARE, OTHER, SELFPAY | PROVIDERS: PCP Nurse Practitioner Family; Visit Provider Nurse Practitioner Women's Health | DX: R30.0 Dysuria (principal) | CPT/HCPCS: 84315; 87086 ==

== ENCOUNTER → 2023-08-12 15:12 | Outpatient (BNVA) | payer MEDICARE, OTHER, SELFPAY | PROVIDERS: PCP Nurse Practitioner Family; Visit Provider Nurse Practitioner Women's Health | DX: N95.0 Postmenopausal bleeding (principal); D25.9 Leiomyoma of uterus, unspecified | CPT/HCPCS: 76830 ==

== ENCOUNTER 2023-10-07 07:00 | Day surgery (SDC) | payer MEDICARE, OTHER, SELFPAY ==
[2023-10-07] VITALS (9 sets, daily range): BP systolic 104–135; BP diastolic 47–75; PULSE 63–82; RESP 16–18; TEMP 36.2–36.5; O2SAT 96–100; BMI 24.4
--- NOTE | 2023-10-07 00:18 | W.PM.OPSFHP ---
Same Day Surgery H&P Indication for Procedure/HPI DATE OF PROCEDURE: October 07, 2023 CHIEF COMPLAINT/INDICATIONFOR SURGICAL PROCEDURE: abnormal uterine bleeding PREOP DIAGNOSIS: abnormal uterine bleeding PLANNED PROCEDURE: Operation Date: 10/07/23 08:30 Proposed Procedures p Hysteroscopy Hysteroscopy w/ Endometrial Sampling/ possible endometrial polypectomy(Not Applicable) - Edwin Tabares MD 63 y.o. had normal and regular periods prior to menopause 10 years ago had light spotting x 7 days in July 2023 no further bleeding and spotting after July Medications/Allergies* Allergies/Adverse Reactions Allergy/AdvReac Type Severity Reaction Status Date / Time Penicillins Allergy Unknown Verified 08/17/23 09:13 Pertinent History/Comorbid Conditions* Medical History (Updated 08/18/23 @ 21:15 by Edwin Tabares MD) Tricuspid regurgitation Palpitations EKG from 02/07/2020 revealed sinus rhythm with a normal ST-T's. Normal [place] and QRS duration. History of cervical dysplasia Surgical History (Updated 12/22/21 @ 18:24 by Mehrdad Castellanos MD) S/P laparoscopic appendectomy (12/22/21) Status post colonoscopy History of 3 sections Family History (Updated 03/09/22 @ 08:45 by Margarita Payton LPN) Colon cancer Family/Other paternal aunt Diabetes Hypercholesteremia Father Mother Hypertension Stroke Denies family history of Ovarian cancer Heart disease Breast cancer Uterine cancer Thyroid disease Social History Alcohol intake: never Substance/Drug Use: never Pertinent Exam Findings alert, oriented x 3, clear to auscultation bilaterally and regular rate & rhythm Pertinent Data Pelvic sono 08-12-23 uterus 10.8 x 7.5 x 8.7 cm Multiple fibroids, up to 4.4 cm Ovaries not seen Pap 07-08-21 NILM, negative for HPV Recommendations Surgery/Procedure today Coding Level of Care Code Acute Code for Chg Fwd Time Spent (min) 20
[2023-10-07] MEDS: scopolamine 1.5 Patch 1 PATCH TRANSDERMA (07:43)
--- NOTE | 2023-10-07 07:44 | P.ANESASSM_ITS ---
Pre-Anesthetic Assessment Height/Weight: Height 1.6 m Temp Pulse Resp BP Pulse Ox O2 Del Method 97.7 F 66 16 135/66 99 Room Air 10/07/23 07:14 10/07/23 07:14 10/07/23 07:14 10/07/23 07:14 10/07/23 07:14 10/07/23 07:16 Preop Diagnosis: abnormal uterine bleeding Operation Date: 10/07/23 08:30 Proposed Procedures p Hysteroscopy Hysteroscopy w/ Endometrial Sampling/ possible endometrial polypectomy(Not Applicable) - Edwin Tabares MD Familial anesthetic complications: None Was Beta Farrah taken within 24 hours: N/A Was Clonidine taken within 24 hours: N/A Last intake: > 8hrs Social No alcohol and No tobacco Exam alert, oriented x 3, clear to auscultation bilaterally and regular rate & rhythm Airway Mallampati: Class I Dentition: full Metabolic Hyperlipidemia and Thyroid Disease Anesthetic Plan ASA status: 2 Anesthesia: General Risk of > 500 ml blood loss (7ml/kg in children): No Medications/Allergies Home Medications Medication Instructions Recorded Confirmed Last Taken Type atorvastatin 40 mg tablet 40 mg PO DAILY #90 tabs 02/02/23 10/06/23 10/06/23 Rx levothyroxine 50 mcg tablet 50 mcg PO DAILY #90 tabs 02/02/23 10/06/23 10/07/23 05:00 Rx (Synthroid) nitrofurantoin 100 mg PO DAILY PRN chronic UTI 02/02/23 10/06/23 10/05/23 Rx monohydrate/macrocrystals 100 mg #90 caps capsule (Macrobid) progesterone micronized 200 mg 200 mg PO DAILY #90 caps 02/02/23 10/06/23 10/06/23 Rx capsule Allergies Allergy/AdvReac Type Severity Reaction Status Date / Time Penicillins Allergy Unknown Verified 10/07/23 07:07 Current Medications Generic Name Dose Route Start Last Admin Trade Name Freq PRN Reason Stop Dose Admin Scopolamine 1 patch 10/07/23 07:02 10/07/23 07:43 Scopolamine 1.5 Patch TRANSDERMA 1 patch ONCE PRN Administration Nausea/ Vomiting Prophylaxis [facility] Anesthesia Medical History Tricuspid regurgitation Palpitations EKG from 02/07/2020 revealed sinus rhythm with a normal ST-T's. Normal NC and QRS duration. History of cervical dysplasia Surgical History S/P laparoscopic appendectomy (12/22/21) Status post colonoscopy History of 3 sections Family History Family/Other Colon cancer paternal aunt Father Hypercholesteremia Mother Hypercholesteremia Other Diabetes Hypertension Stroke Denies family history of Ovarian cancer Heart disease Breast cancer Uterine cancer Thyroid disease Social History Alcohol intake: never Substance/Drug Use: never Data Anesthesia Cardiac Studies: Echocardiogram Ultrasound 03/01/20
[2023-10-07] MEDS: sodium chloride 0.9% 1,000 ML 30 ML IV (07:47)
--- NOTE | 2023-10-07 07:47 | W.PM.OPSUD ---
Surgery/Procedure H&P Update DATE OF PROCEDURE: October 07, 2023 DATE H&P PERFORMED: 10/06/23 H&P UPDATE INFORMATION: I have reviewed H&P completed within last 30 days, I have examined patient prior to procedure and No changes to prior documentation PREOP DIAGNOSIS: abnormal uterine bleeding PLANNED PROCEDURE: Operation Date: 10/07/23 08:30 Proposed Procedures p Hysteroscopy Hysteroscopy w/ Endometrial Sampling/ possible endometrial polypectomy(Not Applicable) - Edwin Tabares MD
--- NOTE | 2023-10-07 09:20 | PM.OP ---
Operative Report Date of procedure: October 07, 2023 Pre-op diagnosis: abnormal uterine bleeding Post-op diagnosis: same Post-op findings: minimal endometrial tissue No polyps Two small submucosal fibroids Procedure done: Hysteroscopy Endometrial sampling and myomectomy with Myosure Implants: none Specimens removed/disposition: endometrial tissue Surgeon: Edwin Tabares MD Anesthesia: MAC Estimated blood loss (mL): 0 Complications: none Condition: stable Disposition: PACU Brief History: 63 y.o. menopause 10 years ago had 7 days of light spotting in July 2023 Procedure: Informed consent signed. Patient was taken to the operating room. Anesthesia was induced. Patient was placed in dorsolithotomy position, prepped and draped for hysteroscopy. A bivalve speculum was placed in the vagina. The anterior lip of the cervix was grasped with a sharp-toothed tenaculum. The cervix was serially dilated with Hegar dilators. . A hysteroscope was placed into the endometrial cavity. The endometrial cavity was seen have minimal endometrial tissue. There were no polyps. There were two small submucosal benign-appearing fibroids. A Myosure was then inserted and used to remove as much of the submucosal fibroids as possible. The endometrial cavity was seen to be intact. The hysteroscope and Myosure were then removed. Endometrial curettage was done with a sharp curette. Endometrial tissue was sent to pathology. The sharp-toothed tenaculum was removed. There was no bleeding from the endometrial cavity or cervix. The patient was then placed supine and awakened and taken to the PACU. Postop condition: stable EBL: none Sponge and instruments counts were normal x 2 Complications: none
--- NOTE | 2023-10-07 10:05 | ANE.PACU2 ---
Inpatient post-anesthesia follow up: Airway intact: Yes Vital signs: Temperature 97.4 F Pulse Rate 63 Respiratory Rate 18 Blood Pressure 122/49 Pulse Oximetry 98 Oxygen Delivery Me thod Room Air Oxygen Flow Rate Fraction of Inspir ed Oxygen Hydration adequate: Yes Nausea and vomiting: No Pain level: 1 Mental status: Baseline
== END 2023-10-07 10:13 | disposition home or self-care (01) ==
PROVIDERS: PCP Nurse Practitioner Family; Visit Provider Obstetrics & Gynecology
PROC: 0UJD8ZZ Inspection of Uterus and Cervix, Via Natural or Artificial Opening Endoscopic (ICD-10-PCS; CPT 58555; principal; 2023-10-07 08:30)
PROC: (CPT 58561; 2023-10-07 08:30)
DX: D25.9 Leiomyoma of uterus, unspecified (principal)
CPT/HCPCS: 58561; 88305; J1100; J2405; J2704; J3010; J7030

== ENCOUNTER → 2023-11-22 14:59 | Outpatient (BNVA) | payer MEDICARE, OTHER, SELFPAY | PROVIDERS: PCP Nurse Practitioner Family; Visit Provider Registered Nurse Neonatal Intensive Care | DX: M79.672 Pain in left foot (principal) | CPT/HCPCS: 73630 ==

== ENCOUNTER 2023-12-10 13:00 | Outpatient (CLI) | payer MEDICARE, OTHER, SELFPAY ==
--- NOTE | 2023-12-10 13:00 | XR_ITS ---
WS: [id number] SCREENING DEXA SCAN [place] CLINICAL INFORMATION: Z78.0 - Asymptomatic menopausal state COMPARISON: None. FINDINGS: The L1-L4 bone mineral density measures 1.050 g/cm2. This corresponds to a T score score of -1.1 and Z score of 0.6. Left femoral neck bone mineral density measures 0.851 g/cm2. This corresponds to a T score of -1.2 an d Z score of 0.0. Right femoral neck bone mineral density measures 0.866 g/cm2. This corresponds to a T score -1.1of an d Z score of 0.2. Mean femoral neck bone mineral density measures 0.859 g/cm2. This corresponds to a T score of -1.2 an d Z score of 0.1. XR/XR DEXA axial skeleton* [id number] IMPRESSION: Osteopenia lumbar spine. Osteopenia femoral necks. Patient's FRAX calculated 10 year probability for major osteoporotic fracture i s 11.1% and osteoporotic hip fracture is 1.8%.
== END 2023-12-10 13:01 | disposition home or self-care (01) ==
PROVIDERS: PCP Nurse Practitioner Family; Visit Provider Nurse Practitioner Family
DX: Z13.820 Encounter for screening for osteoporosis (principal); Z78.0 Asymptomatic menopausal state; M85.80 Other specified disorders of bone density and structure, unspecified site; S92.355A Nondisplaced fracture of fifth metatarsal bone, left foot, initial encounter for closed fracture; M21.612 Bunion of left foot
CPT/HCPCS: 73630; 77080

== ENCOUNTER → 2023-12-23 15:15 | Outpatient (BNVA) | payer MEDICARE, OTHER, SELFPAY | PROVIDERS: PCP Nurse Practitioner Family; Visit Provider Podiatrist Foot & Ankle Surgery | DX: S92.355D Nondisplaced fracture of fifth metatarsal bone, left foot, subsequent encounter for fracture with routine healing (principal); S99.192D Other physeal fracture of left metatarsal, subsequent encounter for fracture with routine healing; X58.XXXD Exposure to other specified factors, subsequent encounter | CPT/HCPCS: 73630; 99213 ==

== ENCOUNTER → 2024-01-05 07:20 | Outpatient (BNVA) | payer MEDICARE, OTHER, SELFPAY | PROVIDERS: PCP Nurse Practitioner Family; Visit Provider Podiatrist Foot & Ankle Surgery | DX: S99.192G Other physeal fracture of left metatarsal, subsequent encounter for fracture with delayed healing; S92.355G Nondisplaced fracture of fifth metatarsal bone, left foot, subsequent encounter for fracture with delayed healing; X58.XXXD Exposure to other specified factors, subsequent encounter | CPT/HCPCS: 73630; 99213 ==

== ENCOUNTER → 2024-01-27 13:00 | Outpatient (BNVA) | payer MEDICARE, OTHER, SELFPAY | PROVIDERS: PCP Nurse Practitioner Family; Visit Provider Podiatrist Foot & Ankle Surgery | DX: S92.355G Nondisplaced fracture of fifth metatarsal bone, left foot, subsequent encounter for fracture with delayed healing (principal); X58.XXXD Exposure to other specified factors, subsequent encounter | CPT/HCPCS: 73630; 99214 ==

== ENCOUNTER 2024-01-28 08:53 | Day surgery (SDC) | payer MEDICARE, OTHER, SELFPAY ==
[2024-01-28] VITALS (8 sets, daily range): BP systolic 90–147; BP diastolic 51–81; PULSE 56–79; RESP 16–18; TEMP 36.1–36.8; O2SAT 98–100
[2024-01-28] MEDS: sodium chloride 0.9% 1,000 ML 30 ML IV (09:25)
[2024-01-28] MEDS: CELEcoxib 200 mg Capsule 400 MG PO (09:25)
[2024-01-28] MEDS: gabapentin 300 mg Capsule PO (09:25)
--- NOTE | 2024-01-28 10:08 | P.HPUD_ITS ---
Surgery/Procedure H&P Update DATE OF PROCEDURE: January 28, 2024 DATE H&P PERFORMED: 01/27/24 H&P UPDATE INFORMATION: I have reviewed H&P completed within last 30 days, I have examined patient prior to procedure, No changes to prior documentation and H&P is in [facility] E[facility] on date indicated PREOP DIAGNOSIS: Left Gallo fracture PLANNED PROCEDURE: Operation Date: 01/28/24 10:45 Proposed Procedures p ORIF Metatarsal ORIF Gallo Fracture(Left) - Shorty Moore DPM
[2024-01-28] MEDS: clindamycin 600 MG/50 ML PREMIX 100 MG IV (10:23)
--- NOTE | 2024-01-28 10:39 | ANES.PREANE2 ---
Pre-Anesthetic Assessment Height/Weight: Height 1.6 m Weight 62.596 kg Temp Pulse Resp BP Pulse Ox O2 Del Method 97.5 F L 65 18 146/64 100 Room Air 01/28/24 09:31 01/28/24 09:31 01/28/24 09:31 01/28/24 09:31 01/28/24 09:31 01/28/24 09:31 Preop Diagnosis: Left Gallo fracture Operation Date: 01/28/24 10:45 Proposed Procedures p ORIF Metatarsal ORIF Gallo Fracture(Left) - Shorty Moore, DPM Was Beta Farrah taken within 24 hours: N/A Last intake: Intake Last Liquid Date 01/27/24 Last Liquid Time 22:00 Last Solid Date 01/27/24 Last Solid Time 19:00 Social No alcohol and No tobacco Airway Submandibular: within normal limits Cervical ROM: within normal limits Mallampati: Class II Pulmonary None reported CV/HEM Murmur (MVP) Metabolic Diabetes Mellitus, Hyperlipidemia and Thyroid Disease Anesthetic Plan ASA status: 2 Anesthesia: MAC Medications/Allergies Home Medications Medication Instructions Recorded Confirmed Last Taken Type atorvastatin 40 mg tablet 40 mg PO DAILY #90 tabs 11/16/23 01/27/24 01/27/24 Rx levothyroxine 50 mcg tablet 50 mcg PO DAILY #90 tabs 11/16/23 01/27/24 01/28/24 Rx (Synthroid) progesterone micronized 200 mg 200 mg PO DAILY #90 caps 11/16/23 01/27/24 01/27/24 Rx capsule Cam Boot #1 ea 12/10/23 01/27/24 Unknown Rx crutches #1 ea 12/28/23 01/27/24 01/27/24 Rx cetirizine 10 mg tablet (Zyrtec) 10 mg PO DAILY 01/27/24 01/27/24 01/27/24 History crutches #1 ea 01/27/24 01/27/24 01/27/24 Rx doxycycline hyclate 50 mg capsule 50 mg PO PRN PRN uti 01/27/24 01/27/24 01/27/24 History nitrofurantoin 100 mg PO PRN PRN uti 01/27/24 01/27/24 01/27/24 History monohydrate/macrocrystals 100 mg capsule hydrocodone 10 mg-acetaminophen 1 tab PO Q6H PRN pain 7 days #20 01/28/24 Unknown Rx 325 mg tablet tabs Allergies Allergy/AdvReac Type Severity Reaction Status Date / Time Penicillins Allergy Unknown Verified 01/27/24 16:42 Current Medications Generic Name Dose Route Start Last Admin Trade Name Freq PRN Reason Stop Dose Admin Sodium Chloride 1,000 mls @ 30 mls/hr 01/28/24 09:15 01/28/24 09:25 Sodium Chloride 0.9% IV 01/29/24 09:14 30 mls/hr .Q24H ELIAS Administration PFSH Anesthesia Medical History Tricuspid regurgitation Palpitations EKG from 02/07/2020 revealed sinus rhythm with a normal ST-T's. Normal MT and QRS duration. History of cervical dysplasia Surgical History S/P laparoscopic appendectomy (12/22/21) Status post colonoscopy History of 3 sections Family History Family/Other Colon cancer paternal aunt Father Hypercholesteremia Mother Hypercholesteremia Other Diabetes Hypertension Stroke Denies family history of Ovarian cancer Heart disease Breast cancer Uterine cancer Thyroid disease Social History Smoking and tobacco/nicotine status: never used tobacco/nicotine Alcohol intake: never Data Anesthesia Cardiac Studies: Echocardiogram Ultrasound 03/01/20
[2024-01-28] MEDS: BUPivacaine 0.5% INJ 10 mL 20 ML INJECTION (10:50)
[2024-01-28] MEDS: BUPivacaine liposome 13.3 mg/mL SDV 20 mL 266 MG INJECTION (10:50)
--- NOTE | 2024-01-28 11:04 | W.PM.BPON ---
Date of Procedure: 08/13/23 Surgeon: Shorty Moore DPM Welder Fitter Apprentice(s): Ed COLVIN Procedure(s) performed: Open reduction internal fixation left Gallo fracture Findings of the procedure(s): None Estimated blood loss: 1 mL Specimen(s) removed: None Post-operative diagnosis: Left Gallo fracture
--- NOTE | 2024-01-28 11:05 | PM.OP ---
Operative Report Date of procedure: January 28, 2024 Pre-op diagnosis: ?Closed nondisplaced fracture of fifth metatarsal bone of left foot with delayed healing, subsequent encounter S92.355G Post-op diagnosis: ?Closed nondisplaced fracture of fifth metatarsal bone of left foot with delayed healing, subsequent encounter S92.355G Procedure done: Open reduction internal fixation left Gallo fracture. CPT code 46447 Implants: [place] 28 Gallo screw 5.5 mm x 36 Specimens removed/disposition: None Pathology: None Surgeon: Shorty Moore DPM Mill Manager: Ed COLVIN Estimated blood loss: 1 19 IV fluids: See intraoperative documentation Urine output: 0 Complications: None Brief History: 63 year old female patient presenting to clinic for follow up of her left fifth metatarsal fracture. DOI 11/22/23 initial conservative management consisting of nonweightbearing and serial x-rays, unfortunately after 2 months no osseous healing appreciated on x-ray discussed surgical ORIF patient would like to proceed. I reviewed at length with the patient, the risks, potential complications, benefits, alternatives, expectations, and typical outcomes associated with the surgery. The risks and potential complications were explained in detail, including but not limited to infection, wound dehiscence or soft tissue complications, bleeding and hematoma, chronic edema, neuritis or nerve damage producing numbness or chronic pain, CRPS, failure to relieve pain or worsening pain, thick / painful / unsightly scar, limited motion / stiffness, malposition, delayed union, malunion, or nonunion, fracture, reaction to implants, anesthetic complications, venous thromboembolism, and deformity recurrence. I discussed the notion of no regrets with the patient as it pertains to complications and outcomes. The patient seemed to understand the nature of the proposed care and required convalescence. They asked appropriate questions, answered to their satisfaction. They are aware no guarantees can be made as to a satisfactory outcome and they understand there may be other possible unforeseen complications or outcomes not listed here that will be treated accordingly if they arise. There were no written or implied guarantees given to the patient. They gave informed consent to proceed. Procedure: Under mild sedation patient was brought to the operating room and remained on the gurney in supine position. A timeout was performed. Anesthesia was then administered by the anesthesia service. Local anesthesia injected by myself consisting of 20 cc of 0.5% Marcaine plain and 20 cc of Exparel in a reverse Mcfarlane block left foot with Marcaine and diffusely subcutaneous in a grid like fashion proximal to the operative site with Exparel. Well-padded pneumatic tourniquet was applied to the left ankle. Left lower extremity was scrubbed, prepped and draped utilizing normal aseptic technique. Left foot was exanguinated with an Esmarch bandage and tourniquet inflated to 250 mmHg. Attention was directed to the left foot where styloid process of the fifth metatarsal base was palpated. Small incision was performed and dissection carried down to the base of the fifth metatarsal this was reduced to anatomic alignment and fixated utilizing standard AO technique with a [place] 5.5 mm x 36 mm screw with excellent bony apposition and compression noted. The AP, oblique and lateral views with intraoperative C-arm confirmed excellent placement of hardware and reduction of the fracture and anatomic alignment of the fifth metatarsal. Incision was irrigated with saline solution and closed with 4-0 nylon. Dressing consisting of Adaptic, sterile 4 x 4, Kerlix and Mark wrap was applied followed by cam boot to the left lower extremity. Tourniquet was deflated and a prompt hyperemic response is noted to the distal digits of the left foot. Patient tolerated the procedure and anesthesia well and was transferred to the PACU with vital signs stable and vascular status intact. Following a period of postoperative monitoring she will be discharged home is to be nonweightbearing to left lower extremity was given at home care instructions, schedule follow-up and myself number to contact me with any postoperative questions or concerns.
--- NOTE | 2024-01-28 11:51 | ANE.PACU2 ---
Inpatient post-anesthesia follow up: Airway intact: Yes Vital signs: Temperature 97.0 F Pulse Rate 56 Respiratory Rate 18 Blood Pressure 147/59 Pulse Oximetry 100 Oxygen Delivery Me thod Room Air Oxygen Flow Rate Fraction of Inspir ed Oxygen Hydration adequate: Yes Nausea and vomiting: No Pain level: controlled Mental status: Baseline
--- NOTE | 2024-01-28 16:03 | XR_ITS ---
WS: [id number] Examination: XR foot LT 2V [id number] Reason for Exam: [facility] Date: January 28, 2024 Comparison: January 05, 2024 Findings: 2 intraoperative images demonstrate screw fixation of the left fifth metatarsal fracture. XR/XR foot LT 2V [id number] Impression: Screw fixation of the left fifth metatarsal fracture is noted Please see intraoperative note for full explanation of findings and the procedu re.
== END 2024-01-28 12:06 | disposition home or self-care (01) ==
PROVIDERS: PCP Nurse Practitioner Family; Visit Provider Podiatrist Foot & Ankle Surgery
PROC: (CPT 28485; principal; 2024-01-28 10:35)
DX: S92.355G Nondisplaced fracture of fifth metatarsal bone, left foot, subsequent encounter for fracture with delayed healing (principal); X58.XXXD Exposure to other specified factors, subsequent encounter; E11.9 Type 2 diabetes mellitus without complications; E78.5 Hyperlipidemia, unspecified
CPT/HCPCS: 28485; 73620; 76000; C1713; C9290; J2704; J3010; J3490; J7030

== ENCOUNTER → 2024-02-10 15:14 | Outpatient (BNVA) | payer MEDICARE, OTHER, SELFPAY | PROVIDERS: PCP Nurse Practitioner Family; Visit Provider Podiatrist Foot & Ankle Surgery | DX: Z98.890 Other specified postprocedural states; S99.192G Other physeal fracture of left metatarsal, subsequent encounter for fracture with delayed healing; X58.XXXD Exposure to other specified factors, subsequent encounter | CPT/HCPCS: 73630; 99024 ==

== ENCOUNTER → 2024-03-09 14:29 | Outpatient (BNVA) | payer MEDICARE, OTHER, SELFPAY | PROVIDERS: PCP Nurse Practitioner Family; Visit Provider Podiatrist Foot & Ankle Surgery | DX: Z98.890 Other specified postprocedural states; S99.192D Other physeal fracture of left metatarsal, subsequent encounter for fracture with routine healing; X58.XXXD Exposure to other specified factors, subsequent encounter | CPT/HCPCS: 73630; 99024 ==

== ENCOUNTER → 2024-04-06 12:52 | Outpatient (BNVA) | payer MEDICARE, OTHER, SELFPAY | PROVIDERS: PCP Nurse Practitioner Family; Visit Provider Podiatrist Foot & Ankle Surgery | DX: Z98.890 Other specified postprocedural states; S99.192D Other physeal fracture of left metatarsal, subsequent encounter for fracture with routine healing; X58.XXXD Exposure to other specified factors, subsequent encounter | CPT/HCPCS: 73630; 99024 ==

== ENCOUNTER 2024-04-11 14:34 | Outpatient (CLI) | payer MEDICARE, OTHER, SELFPAY ==
--- NOTE | 2024-04-11 14:36 | MM_ITS ---
WS: [id number] BILATERAL 3D TOMOSYNTHESIS DIGITAL SCREENING MAMMOGRAPHY WITH CAD CLINICAL INFORMATION: SCREENING HISTORY: Screening mammogram. No current complaints. COMPARISON: 2022 TECHNIQUE: Bilateral CC and MLO views. FINDINGS: The breasts are composed of heterogeneous fibroglandular density tissue, which can limit the detectio n of small underlying mass lesions. No suspicious mass, asymmetry, calcifications, or architectural d istortion. No evidence of malignancy. Incidental punctate calcifications RIGHT breast. MM/MM [facility] tomosynthesis [id number] IMPRESSION: DENSITY: The breasts are heterogeneously dense, which may obscure small masses. BI-RADS: 2 - Benign FOLLOW UP: 1 Year Follow-up Recommend return to annual screening mammography.
== END 2024-04-11 14:35 | disposition home or self-care (01) ==
LOC: RAD 14:35
PROVIDERS: PCP Nurse Practitioner Family; Visit Provider Nurse Practitioner Family
DX: Z12.31 Encounter for screening mammogram for malignant neoplasm of breast (principal); R92.323 Mammographic fibroglandular density, bilateral breasts; R92.1 Mammographic calcification found on diagnostic imaging of breast
CPT/HCPCS: 77063; 77067

== ENCOUNTER → 2024-08-01 08:23 | Outpatient (BNVA) | payer MEDICARE, OTHER, SELFPAY | PROVIDERS: PCP Nurse Practitioner Family; Visit Provider Obstetrics & Gynecology | DX: D25.9 Leiomyoma of uterus, unspecified (principal) | CPT/HCPCS: 76830 ==

== ENCOUNTER → 2024-08-10 14:33 | Outpatient (BNVA) | payer MEDICARE, OTHER, SELFPAY | PROVIDERS: PCP Nurse Practitioner Family; Visit Provider Nurse Practitioner Family | DX: L29.89 Other pruritus (principal); B00.1 Herpesviral vesicular dermatitis; L21.8 Other seborrheic dermatitis; L82.1 Other seborrheic keratosis; D22.4 Melanocytic nevi of scalp and neck; L81.4 Other melanin hyperpigmentation; L57.8 Other skin changes due to chronic exposure to nonionizing radiation; L82.0 Inflamed seborrheic keratosis; Z78.9 Other specified health status; R20.8 Other disturbances of skin sensation | CPT/HCPCS: 17110; 99214 ==

== ENCOUNTER → 2024-08-17 08:42 | Outpatient (BNVA) | payer MEDICARE, OTHER, SELFPAY | PROVIDERS: PCP Nurse Practitioner Family; Visit Provider Nurse Practitioner Family | DX: F33.0 Major depressive disorder, recurrent, mild (principal); L29.89 Other pruritus; B00.1 Herpesviral vesicular dermatitis; L82.0 Inflamed seborrheic keratosis; Z78.9 Other specified health status; R20.8 Other disturbances of skin sensation; L21.8 Other seborrheic dermatitis; L82.1 Other seborrheic keratosis; D22.4 Melanocytic nevi of scalp and neck; L81.4 Other melanin hyperpigmentation; L57.8 Other skin changes due to chronic exposure to nonionizing radiation; M25.511 Pain in right shoulder | CPT/HCPCS: 80048; 82728; 83550; 84439; 84443; 85025 ==

== ENCOUNTER → 2024-11-20 09:10 | Outpatient (BNVA) | payer MEDICARE, OTHER, SELFPAY | PROVIDERS: PCP Nurse Practitioner Family; Visit Provider Nurse Practitioner Family | DX: E78.5 Hyperlipidemia, unspecified (principal) | CPT/HCPCS: 80061 ==

== ENCOUNTER → 2025-01-15 10:30 | Outpatient (BNVA) | payer MEDICARE, OTHER, SELFPAY | PROVIDERS: PCP Nurse Practitioner Family; Visit Provider Obstetrics & Gynecology | DX: D25.9 Leiomyoma of uterus, unspecified (principal) | CPT/HCPCS: 76830 ==

== ENCOUNTER 2025-04-17 11:29 | Outpatient (CLI) | payer MEDICARE, OTHER, SELFPAY ==
--- NOTE | 2025-04-17 11:40 | MM_ITS ---
WS: [id number] BILATERAL 3D TOMOSYNTHESIS DIGITAL SCREENING MAMMOGRAPHY WITH CAD CLINICAL INFORMATION: Z12.31 - Encounter for screening mammogram for malignant ... HISTORY: Screening mammogram. No current complaints. COMPARISON: 2023 TECHNIQUE: Bilateral CC and MLO views. FINDINGS: The breasts are composed of heterogeneous fibroglandular density tissue, which can limit the detection of small underlying mass lesions. No suspicious mass, asymmetry, calcifications, or architectural distortion. No evidence of malignancy. Stable clustered calcifications upper outer RIGHT breast MM/MM [facility] tomosynthesis [id number] IMPRESSION: DENSITY: The breasts are heterogeneously dense, which may obscure small masses. BI-RADS: 2 - Benign FOLLOW UP: 1 Year Follow-up Recommend return to annual screening mammography.
== END 2025-04-17 11:30 | disposition home or self-care (01) ==
LOC: MOBLMAM 11:31
PROVIDERS: PCP Nurse Practitioner Family; Visit Provider Nurse Practitioner Family
DX: Z12.31 Encounter for screening mammogram for malignant neoplasm of breast (principal); R92.333 Mammographic heterogeneous density, bilateral breasts; R92.323 Mammographic fibroglandular density, bilateral breasts; R92.1 Mammographic calcification found on diagnostic imaging of breast
CPT/HCPCS: 77063; 77067

== ENCOUNTER → 2025-05-28 15:44 | Outpatient (BNVA) | payer MEDICARE, OTHER, SELFPAY | PROVIDERS: PCP Nurse Practitioner Family; Visit Provider Obstetrics & Gynecology | DX: N95.0 Postmenopausal bleeding (principal); D25.9 Leiomyoma of uterus, unspecified; R93.89 Abnormal findings on diagnostic imaging of other specified body structures | CPT/HCPCS: 76830 ==